=== PATIENT | male | born 1960 | race African-American/Black ===

== ENCOUNTER 2021-02-03 14:19 | Outpatient (CLI) | payer BC | END 2021-02-03 14:20 | disposition home or self-care (01) | LOC: BICRAD 14:19 | PROVIDERS: ATTEND Family Medicine | DX: M79.671 Pain in right foot (principal) ==

== ENCOUNTER 2024-07-31 14:21 | Outpatient (CLI) | payer BC | END 2024-07-31 14:22 | disposition home or self-care (01) | LOC: SCSRAD 14:21 | PROVIDERS: ATTEND Family Medicine | DX: R05.3 Chronic cough (principal) | CPT/HCPCS: 71046 ==